=== PATIENT | male | born 1985 | race Caucasian/White ===

== ENCOUNTER → 2017-10-19 | Day surgery (SDC) | payer OTHER ==
--- NOTE | 2017-10-19 11:22 | RADIOLOGY REPORT (SQ) ---
EXAM DESCRIPTION: ARTHRO SHOULDER INJECTION; FLUORO/NEEDLE PLACEMENT COMPLETED DATE/TIME: 10/19/2017 10:46 am REASON FOR STUDY: SHOULDER PAIN (M25.512) M25.512 PAIN IN LEFT SHOULDER COMPARISON: None. FLUOROSCOPY TIME: 10 seconds 1 digital radiographic images saved to PACS. LIMITATIONS: None. PROCEDURE: Procedure, risks, benefits and alternatives explained to patient who then gave written co nsent. The posterior left shoulder was marked and a time out was called for correct procedure verific ation. Posterior entry site marked using fluoroscopic guidance. Shoulder prepped and draped using s terile technique. Local anesthesia achieved using 5 mL of 1% lidocaine injection. 22 gauge spinal n eedle introduced into the joint space under direct fluoroscopic visualization. Non-ionic contrast ins tilled to confirm intra-articular position. Dilute gadolinium solution then injected. Needle removed and entry site covered with sterile bandage. No immediate complications noted. TECHNIQUE: Digital images acquired during fluoroscopy and stored on PACS. Patient immediately take n to the MR suite for additional imaging. INJECTION LOCATION: Left posterior glenohumeral joint CONTRAST TYPE AND AMOUNT: 1 mL of Isovue-300 contrast was injected to confirm intra-articular needle placement followed by 12 mL of dilute Prohance/Saline mixture. IMPRESSION: SUCCESSFUL NEEDLE PLACEMENT AND INJECTION FOR LEFT SHOULDER MR ARTHROGRAM USING POSTERIO R APPROACH. COMMENT: Quality ID 145: Final reports for procedures using fluoroscopy that document radiation exp osure indices, or exposure time and number of fluorographic images (if radiation exposure indices are not available) TECHNICAL DOCUMENTATION: JOB ID: [id number] [employer]- All Rights Reserved Reading location - IP/workstation name: [email or web address]-RR
--- NOTE | 2017-10-19 11:22 | RADIOLOGY REPORT (SQ) ---
EXAM DESCRIPTION: ARTHRO SHOULDER INJECTION; FLUORO/NEEDLE PLACEMENT COMPLETED DATE/TIME: 10/19/2017 10:46 am REASON FOR STUDY: SHOULDER PAIN (M25.512) M25.512 PAIN IN LEFT SHOULDER COMPARISON: None. FLUOROSCOPY TIME: 10 seconds 1 digital radiographic images saved to PACS. LIMITATIONS: None. PROCEDURE: Procedure, risks, benefits and alternatives explained to patient who then gave written co nsent. The posterior left shoulder was marked and a time out was called for correct procedure verific ation. Posterior entry site marked using fluoroscopic guidance. Shoulder prepped and draped using s terile technique. Local anesthesia achieved using 5 mL of 1% lidocaine injection. 22 gauge spinal n eedle introduced into the joint space under direct fluoroscopic visualization. Non-ionic contrast ins tilled to confirm intra-articular position. Dilute gadolinium solution then injected. Needle removed and entry site covered with sterile bandage. No immediate complications noted. TECHNIQUE: Digital images acquired during fluoroscopy and stored on PACS. Patient immediately take n to the MR suite for additional imaging. INJECTION LOCATION: Left posterior glenohumeral joint CONTRAST TYPE AND AMOUNT: 1 mL of Isovue-300 contrast was injected to confirm intra-articular needle placement followed by 12 mL of dilute Prohance/Saline mixture. IMPRESSION: SUCCESSFUL NEEDLE PLACEMENT AND INJECTION FOR LEFT SHOULDER MR ARTHROGRAM USING POSTERIO R APPROACH. COMMENT: Quality ID 145: Final reports for procedures using fluoroscopy that document radiation exp osure indices, or exposure time and number of fluorographic images (if radiation exposure indices are not available) TECHNICAL DOCUMENTATION: JOB ID: [id number] [employer]- All Rights Reserved Reading location - IP/workstation name: [facility]-RR
--- NOTE | 2017-10-19 12:24 | RADIOLOGY REPORT (SQ) ---
EXAM DESCRIPTION: MRI LT UPPER JOINT WITH COMPLETED DATE/TIME: 10/19/2017 11:24 am REASON FOR STUDY: SHOULDER PAIN (M25.512) M25.512 PAIN IN LEFT SHOULDER COMPARISON: None. TECHNIQUE: Last shoulder images acquired and stored on PACS. Oblique coronal, oblique sagittal, and axial imaging to include fat sensitive sequences as T1, water sensitive sequences as FST2/STIR, and c ontrast sensitive sequences as FST1. LIMITATIONS: None. FINDINGS: JOINT DISTENTION: Adequate distention for interpretation. BONE MARROW AND CORTEX: Normal. No significant osteophytes. No edema or defects. AC JOINT: Type II acromion. Minimal significant AC joint arthropathy. GLENOHUMERAL JOINT: No subluxation or dislocation. No focal chondral defects or reactive bone changes . ROTATOR CUFF: Intact without significant tendinopathy, partial or full-thickness tears. No peritendin itis. LABRUM AND BICEPS LABRAL COMPLEX: Normal signal in the rotator interval without tear of the superior glenohumeral ligament. Superior labrum, intra-articular long head biceps intact. Distal biceps in no rmal anatomic location in bicipital groove. No paralabral cysts. INFERIOR LABRAL COMPLEX: Bony glenoid intact. There is an inferior labral tear on axial images 12-14 , and Aber images 9-12. 4 mm paralabral cyst along the posterior inferior labrum on axial image 12 a nd coronal image 14 ADJACENT SOFT TISSUES: No masses or nodes. OTHER: No other significant finding. IMPRESSION: Inferior labral tear with small posterior inferior paralabral cyst TECHNICAL DOCUMENTATION: JOB ID: [id number] [employer]- All Rights Reserved Reading location - IP/workstation name: [email or web address]
== END ==
LOC: RAD 09:29 → EDSTATUS 10:30
PROVIDERS: ATTEND Physician Assistant
DX: M25.512 Pain in left shoulder (principal)
CPT/HCPCS: 73222; 77002; 23350; A9576